=== PATIENT | female | born 1965 | race Caucasian/White ===

== ENCOUNTER → 2022-05-07 | Day surgery (SDC) | payer OTHER | END | disposition home or self-care (01) | LOC: FMAMMOTONE 09:56 | PROVIDERS: ATTEND Family Medicine | PROC: 0HBT3ZX Excision of Right Breast, Percutaneous Approach, Diagnostic (ICD-10-PCS; principal; 2022-05-07) | DX: Z53.8 Procedure and treatment not carried out for other reasons (principal); R92.1 Mammographic calcification found on diagnostic imaging of breast | CPT/HCPCS: 19081 ==